=== PATIENT | male | born 1965 | race Caucasian/White ===

== ENCOUNTER 2018-12-20 17:16 | Emergency (ER) | payer BC ==
[2018-12-20] MEDS ORDERED: Orphenadrine 100 MG Tab.ER PO ONE (17:43)
[2018-12-20] MEDS ORDERED: FLU Vacc QS2019-20(6MOS+)/PF 60 MCG/0.5 ML SYRINGE IM ONE (17:45)
--- NOTE | 2018-12-20 17:48 | EDM.PDOC ---
ED HPI GENERAL MEDICAL PROBLEM - General Chief Complaint: General Stated Complaint: FALL Time Seen by Provider: 12/20/18 17:31 Source of Information: Reports: Patient, RN Notes Reviewed History Limitations: Reports: No Limitations - History of Present Illness INITIAL COMMENTS - FREE TEXT/NARRATIVE: Patient is a 53-year-old male who presents to the ED for evaluation of a fall. He states that he was at home, roughly 1 hour ago, and he fell down about 4 or 5 steps, he was not sure of his foot slipped, or if he just missed a step. This resulted in him falling, and landing on his butt, he states that his back hit the railing at this time, he does not state that he hit his head, or had any sort of loss of consciousness. He notes that he kind of rolled down the stairs onto all fours. He did take 2 Tylenol before coming to [place] for management, as he lives in [place] which is about an hour away. He would note his pain is around 3 or 4 out of 10. He does note some mild spasms associated with this. He denies being on any sort of blood thinners. Patient notes he does have some chronic back issues, but none that are bothersome for him. He denies any other past medical history. He denies any numbness or tingling distal to the injury. He has no other complaints at this time. Treatments ANIMATOR: Reports: Acetaminophen Lower Buttock Pain Score (Numeric/FACES): 4 - Related Data Allergies Allergy/AdvReac Type Severity Reaction Status Date / Time ibuprofen [From Motrin] AdvReac Itching Verified 12/20/18 17:36 Home Meds: Home Meds Orphenadrine [Norflex] 100 mg PO BID PRN #10 tab 12/20/18 [Rx] Past Medical History - Past Health History Medical/Surgical History: Denies Medical/Surgical History Social & Family History - Tobacco Use Smoking Status *Q: Never Smoker - Caffeine Use Caffeine Use: Reports: Coffee ED ROS GENERAL - Review of Systems Review Of Systems: ROS reveals no pertinent complaints other than HPI. Musculoskeletal: Reports: Back Pain (sacrum/tailbone pain), Muscle Pain (low back muscle spasm). Denies: Leg Pain Neurological: Denies: Numbness, Tingling ED EXAM, GENERAL - Physical Exam Exam: See Below Exam Limited By: No Limitations General Appearance: Alert, WD/WN, No Apparent Distress Throat/Mouth: Normal Inspection, Normal Lips, Normal Teeth, Normal Gums, Normal Oropharynx, Normal Voice, No Airway Compromise Head: Atraumatic, Normocephalic Respiratory/Chest: No Respiratory Distress, Lungs Clear, Normal Breath Sounds, No Accessory Muscle Use, Chest Non-Tender Cardiovascular: Normal Peripheral Pulses, Regular Rate, Rhythm, No Murmur Peripheral Pulses: 3+: Dorsalis Pedis (L), Dorsalis Pedis (R) Back Exam: Muscle Spasm, Other (sacral/tailbone tenderness) Extremities: Normal Inspection, Normal Range of Motion, Normal Capillary Refill Neurological: Alert, Oriented, Normal Cognition, No Motor/Sensory Deficits, Abnormal Gait (guarded, shuffling gait) Psychiatric: Normal Affect, Normal Mood Skin Exam: Warm, Dry, Intact, Normal Color, No Rash Course - Vital Signs Last Recorded V/S: Last Vital Signs Temp 98.8 F 12/20/18 17:32 Pulse 81 12/20/18 17:32 Resp 20 12/20/18 17:32 BP 146/96 H 12/20/18 17:32 Pulse Ox 94 L 12/20/18 17:32 - Orders/Labs/Meds Orders: Active Orders 24 hr Category Date Time Status Influenza Vaccine Charge [RC] .DISCHARGE Care 12/20/18 17:38 Active Sacrum Coccyx Min 2V [CR] Stat Exams 12/20/18 17:36 Ordered Meds: Medications Discontinued Medications Generic Name Dose Route Start Last Admin Trade Name Freq PRN Reason Stop Dose Admin Influenza Virus Vaccine 60 mcg 12/20/18 17:45 12/20/18 18:10 Fluzone Quad [id number] Syringe IM 12/20/18 17:46 60 mcg .ONCE ONE Administration Orphenadrine Citrate 100 mg 12/20/18 17:43 12/20/18 18:10 Norflex PO 12/20/18 17:44 100 mg ONETIME ONE Administration - Re-Assessments/Exams Free Text/Narrative Re-Assessment/Exam: 12/20/18 17:49 Patient presents to the ED for the evaluation of a tailbone injury after fall. Did order a sacrum/coccyx x-ray for initial evaluation, and did order 100 mg PO Norflex for further management. He states that the Tylenol did help with the pain quite a bit. At this time he has no pain anywhere else, but would not be surprised if he doesn't develop residual aches further up from the site of injury, over the next few days. 12/20/18 18:55 Patient's x-rays are done, and I cannot appreciate any sort of fracture, and these were reviewed with Dr. Cedeño. However official radiology read is pending. We'll discharge the patient home with general recommendations and a prescription for Norflex. Departure - Departure Time of Disposition: 18:57 Disposition: Home, Self-Care 01 Condition: Fair Clinical Impression: Coccygeal pain, acute - Discharge Information *PRESCRIPTION DRUG MONITORING PROGRAM REVIEWED*: No *COPY OF PRESCRIPTION DRUG MONITORING REPORT IN PATIENT SARAH: No Instructions: Tailbone Injury, [id number] Forms: ED Department Discharge Additional Instructions: You have been evaluated in the ED for your tailbone pain. Your x-ray demonstrated no acute fracture or bony abnormality. Please use ice as tolerated to the affected area. Please try to elevate the affected area to relieve swelling. You may take Tylenol 500 mg or ibuprofen 600mg q6 hrs for pain relief. Please do so until you have a tolerable level of pain with activity. Do not exceed 4000mg Tylenol or 3200mg ibuprofen in a 24 hour time period. You were given a prescription for Norflex, a muscle relaxer, please take one tablet every 12 hours as needed for further muscle spasms. This was electronically prescribed to the [place] pharmacy. Please return to ED if your symptoms should change or worsen. - My Orders Last 24 Hours: My Active Orders 12/20/18 17:36 Sacrum Coccyx Min 2V [CR] Stat 12/20/18 17:38 Influenza Vaccine Charge [RC] .DISCHARGE - Assessment/Plan Last 24 Hours: My Active Orders 12/20/18 17:36 Sacrum Coccyx Min 2V [CR] Stat 12/20/18 17:38 Influenza Vaccine Charge [RC] .DISCHARGE
--- NOTE | 2018-12-21 07:07 | CR ---
Sacrum and coccyx: Three views of the sacrum and coccyx were obtained. Mild spondylolisthesis is noted at L4-L5. This is compatible with degenerative apophyseal change. Sacrum and coccyx show no discrete fracture or other abnormality. Sacroiliac joints appear within normal limits. Impression: 1. Slight degenerative change as noted above. Nothing acute is seen on sacrum and coccyx study. Diagnostic code #2
== END 2018-12-20 19:33 | disposition home or self-care (01) ==
LOC: JD.ED 17:16
DX: M53.3 Sacrococcygeal disorders, not elsewhere classified (principal); Z23 Encounter for immunization; Z88.6 Allergy status to analgesic agent; W10.9XXA Fall (on) (from) unspecified stairs and steps, initial encounter
CPT/HCPCS: 72220; 90471; 90686; 99283; A9270; G0008

== ENCOUNTER 2023-07-20 08:58 | Day surgery (SDC) | payer BC ==
[~2023-07-20 08:58] MED LIST: Sodium Chloride 0.9% 10 ML Syringe FLUSH PRN; Sodium Chloride 0.9% 10 ML Syringe FLUSH SCH
[2023-07-20] MEDS: Lactated Ringers 1,000 ML IV SCH (09:55)
[2023-07-20] MEDS ORDERED: Propofol 200 MG/20 ML SDV ONE (11:21)
[2023-07-20] MEDS ORDERED: Labetalol 100 MG/20 ML MDV ONE (11:35)
== END 2023-07-20 13:00 | disposition home or self-care (01) ==
LOC: JD.SDS 08:58
PROVIDERS: ATTEND Surgery
DX: Z12.11 Encounter for screening for malignant neoplasm of colon (principal); K57.30 Diverticulosis of large intestine without perforation or abscess without bleeding; I10 Essential (primary) hypertension; E11.9 Type 2 diabetes mellitus without complications; Z88.8 Allergy status to other drugs, medicaments and biological substances; Z86.010 Personal history of colon polyps; Z79.899 Other long term (current) drug therapy
CPT/HCPCS: 82947; J1921; J2704; J7120